=== PATIENT | female | born 1945 | race Caucasian/White ===

== ENCOUNTER 2017-11-03 05:36 | Inpatient (IN) | payer OTHER ==
[2017-11-03] MEDS ORDERED: BACITRACIN 50000 UNITS INJ (06:41)
[2017-11-03] MEDS ORDERED: POLYMYXIN B 500000 UNIT INJ (06:43)
[2017-11-03] MEDS: LANSOPRAZOLE 30 MG CAP PO (06:47)
[2017-11-03] MEDS: ACETAMINOPHEN 1000MG/100ML IV 100 ML IVPB ×2 (06:47→21:20)
[2017-11-03] MEDS: ONDANSETRON 4 MG INJ IV ×3 (06:47→17:54)
[2017-11-03] MEDS: LACTATED RINGER'S 1,000 ML IV (06:48)
[2017-11-03] MEDS ORDERED: CEFAZOLIN 2 GM/50 ML (PMX) 50 ML (FOR WT < 120 KG) IVPB (07:00)
[2017-11-03] MEDS ORDERED: TRANEXAMIC ACID IRR (07:30)
[2017-11-03] MEDS ORDERED: SOD CHLORIDE 0.9% IRR (07:30)
[2017-11-03] MEDS ORDERED: BUPIVACAINE 0.75%/DEXT (SPINAL) 2 ML INJ (07:36)
[2017-11-03] MEDS ORDERED: morphine SULFATE/PF (10 MG/10 ML) INJ (07:36)
[2017-11-03] MEDS ORDERED: ONDANSETRON 4 MG INJ (08:29)
[2017-11-03] MEDS ORDERED: PROPOFOL 20 ML (08:29)
[2017-11-03] MEDS ORDERED: ROCURONIUM 50 MG INJ (08:29)
[2017-11-03] MEDS ORDERED: CEFAZOLIN 1 GM INJ (08:29)
[2017-11-03] MEDS ORDERED: LIDOCAINE 100 MG SYRINGE (08:29)
[2017-11-03] MEDS ORDERED: SUCCINYLCHOLINE CHLORIDE 100 MG/5 ML SYG IV (08:29)
[2017-11-03] MEDS ORDERED: DEXAMETHASONE 4 MG/ML 1 ML INJ (08:29)
[2017-11-03] MEDS ORDERED: FENTAnyl 50 MCG/ML VIAL IV ×2 (08:30)
[2017-11-03] MEDS ORDERED: ONDANSETRON 4 MG INJ IV ×2 (08:30→19:30)
[2017-11-03] MEDS ORDERED: METOCLOPRAMIDE 10 MG INJ IV (08:30)
[2017-11-03] MEDS ORDERED: HYDROmorphONE (0.2 MG/ML) 10ML SYG IV ×3 (08:30)
[2017-11-03] MEDS ORDERED: DIPHENHYDRAMINE 50 MG INJ IV (08:30)
[2017-11-03] MEDS ORDERED: MEPERIDINE 25 MG INJ IV (08:30)
[2017-11-03] MEDS: TRANEXAMIC ACID IVPB ×2 (08:36→09:17)
[2017-11-03] MEDS: SOD CHLORIDE 0.9% IVPB (08:36)
[2017-11-03] MEDS ORDERED: TRANEXAMIC ACID IVPB (09:00)
[2017-11-03] MEDS ORDERED: SOD CHLORIDE 0.9% IVPB (09:00)
[2017-11-03] MEDS: POLYMYXIN/BACITRACIN 1L IRRIG (09:15)
[2017-11-03] MEDS: DEXTROSE 5% IVPB (09:17)
[2017-11-03] MEDS ORDERED: SUGAMMADEX SODIUM 200 MG/2 ML VIAL IV (09:23)
[2017-11-03] MEDS: VANCOMYCIN 1 GM INJ (11:20)
[2017-11-03] MEDS ORDERED: MAGNESIUM HYDROXIDE 30ML CUP PO (12:30)
[2017-11-03] MEDS ORDERED: BISACODYL 10 MG SUPP PR (12:30)
[2017-11-03] MEDS ORDERED: SENNA/DOCUSATE NA (8.6MG/50MG) TAB PO (12:30)
[2017-11-03] MEDS ORDERED: NALOXONE (0.4 MG/ML) INJ IV (12:30)
[2017-11-03] MEDS: DOCUSATE SODIUM 100 MG CAP PO (12:30)
[2017-11-03] MEDS ORDERED: NA PHOSPHATE/BIPHOS 133 ML ENEMA PR (12:30)
[2017-11-03] MEDS: CEFAZOLIN 2 GM/50 ML (PMX) 50 ML IVPB ×3 (13:18→21:35)
[2017-11-03] MEDS: ASPIRIN (EC) 325 MG TAB PO (21:19)
[2017-11-03] MEDS: GABAPENTIN 300 MG CAP PO (21:19)
[2017-11-03] MEDS: SOD CHLORIDE 0.9% 1,000 ML IV (21:21)
[2017-11-04] MEDS: SOD CHLORIDE 0.9% 1,000 ML IV ×2 (00:40→13:10)
[2017-11-04] MEDS: ACETAMINOPHEN 1000MG/100ML IV 100 ML IVPB ×3 (04:22→20:26)
[2017-11-04] MEDS: CEFAZOLIN 2 GM/50 ML (PMX) 50 ML IVPB (04:55)
[2017-11-04 05:37] LABS: ADD MAN DIFF? NO
[2017-11-04 05:38] LABS: BASOPHILS % 0.1 % (0.0-2.0); HEMATOCRIT 28.8 % (37.0-47.0); HEMOGLOBIN 9.1 g/dl (12.0-16.0); LYMPHOCYTES # 1.3 10^3/ul (0.8-2.9); LYMPHOCYTES % 8.5 % (15.0-51.0); MEAN CORPUSCULAR HEMOGLOBIN 28.7 pg (29.0-33.0); MEAN CORPUSCULAR HGB CONC 31.6 g/dl (32.0-37.0); MEAN CORPUSCULAR VOLUME 90.9 fl (82.0-101.0); MEAN PLATELET VOLUME 12.8 fl (7.4-10.4); MONOCYTE # 1.5 10^3/ul (0.3-0.9); MONOCYTES % 9.7 % (0.0-11.0); NEUTROPHIL # 12.2 10^3/ul (1.6-7.5); NEUTROPHILS % 81.2 % (39.0-77.0); PLATELET COUNT 181 10^3/UL (140-415); RED BLOOD COUNT 3.17 10^6/ul (4.20-5.40); RED CELL DISTRIBUTION WIDTH 12.9 % (11.5-14.5)
[2017-11-04] MEDS: BETHANECHOL 25 MG TAB PO (06:04)
[2017-11-04 06:12] LABS: ANION GAP 7 (8-16); CALCIUM 8.3 mg/dl (8.4-10.2); CARBON DIOXIDE 28 mmol/L (21-31); CHLORIDE 107 mmol/L (97-110); CREATININE 0.68 mg/dl (0.44-1.00); GLUCOSE 103 mg/dl (70-220); SODIUM 137 mmol/L (135-144)
[2017-11-04] MEDS: DIPHENHYDRAMINE 50 MG INJ IV (06:17)
[2017-11-04 06:22] LABS: BLOOD UREA NITROGEN 11 mg/dl (7-20)
[2017-11-04] MEDS: ASPIRIN (EC) 325 MG TAB PO ×2 (08:26→20:27)
[2017-11-04] MEDS: FERROUS FUMARATE (SR) TAB PO ×2 (08:26→20:27)
[2017-11-04] MEDS: DOCUSATE SODIUM 100 MG CAP PO ×2 (08:26→21:00)
[2017-11-04] MEDS ORDERED: CELECOXIB 200 MG CAP PO (09:00)
[2017-11-04] MEDS: oxyCODONE 5 MG TAB PO ×3 (09:50→21:29)
[2017-11-04] MEDS: GABAPENTIN 300 MG CAP PO (20:27)
[2017-11-05] MEDS: SOD CHLORIDE 0.9% 1,000 ML IV ×2 (01:40→14:10)
[2017-11-05] MEDS: oxyCODONE 5 MG TAB PO (03:20)
[2017-11-05] MEDS: ACETAMINOPHEN 1000MG/100ML IV 100 ML IVPB (03:53)
[2017-11-05 05:55] LABS: ADD MAN DIFF? NO
[2017-11-05] MEDS: PANTOPRAZOLE (EC) 40 MG TAB PO (06:08)
[2017-11-05 06:09] LABS: ABNORMAL IP MESSAGE 1; BASOPHILS % 0.2 % (0.0-2.0); EOSINOPHILS # 0.1 10^3/ul (0.0-0.5); EOSINOPHILS % 0.4 % (0.0-7.0); HEMATOCRIT 30.7 % (37.0-47.0); HEMOGLOBIN 9.7 g/dl (12.0-16.0); LYMPHOCYTES # 1.1 10^3/ul (0.8-2.9); LYMPHOCYTES % 9.3 % (15.0-51.0); MEAN CORPUSCULAR HEMOGLOBIN 28.8 pg (29.0-33.0); MEAN CORPUSCULAR HGB CONC 31.6 g/dl (32.0-37.0); MEAN CORPUSCULAR VOLUME 91.1 fl (82.0-101.0); MEAN PLATELET VOLUME 13.2 fl (7.4-10.4); NEUTROPHIL # 9.8 10^3/ul (1.6-7.5); NEUTROPHILS % 81.5 % (39.0-77.0); PLATELET COUNT 172 10^3/UL (140-415); RED BLOOD COUNT 3.37 10^6/ul (4.20-5.40); RED CELL DISTRIBUTION WIDTH 13.2 % (11.5-14.5)
[2017-11-05 06:19] LABS: POSITIVE DIFF @See below
[2017-11-05 06:35] LABS: ANION GAP 11 (8-16); BLOOD UREA NITROGEN 9 mg/dl (7-20); CALCIUM 8.1 mg/dl (8.4-10.2); CARBON DIOXIDE 28 mmol/L (21-31); CHLORIDE 107 mmol/L (97-110); CREATININE 0.61 mg/dl (0.44-1.00); GLUCOSE 112 mg/dl (70-220); POTASSIUM 3.6 mmol/L (3.5-5.1); SODIUM 142 mmol/L (135-144)
[2017-11-05] MEDS: ASPIRIN (EC) 325 MG TAB PO ×2 (08:15→21:27)
[2017-11-05] MEDS: KETOROLAC 15 MG INJ IV ×2 (08:15→15:30)
[2017-11-05] MEDS: FERROUS FUMARATE (SR) TAB PO ×2 (08:15→21:27)
[2017-11-05] MEDS: DOCUSATE SODIUM 100 MG CAP PO ×2 (08:15→21:32)
[2017-11-05] MEDS: POTASSIUM CHLORIDE (SR) 20 MEQ TAB PO (12:41)
[2017-11-05] MEDS: GABAPENTIN 300 MG CAP PO (21:27)
[2017-11-06] MEDS: SOD CHLORIDE 0.9% 1,000 ML IV (02:40)
[2017-11-06 05:23] LABS: ADD MAN DIFF? NO
[2017-11-06 05:27] LABS: WHITE BLOOD COUNT 10.7 10^3/ul (4.8-10.8)
[2017-11-06 05:27] LABS: ABNORMAL IP MESSAGE 1; BASOPHILS % 0.3 % (0.0-2.0); EOSINOPHILS # 0.1 10^3/ul (0.0-0.5); HEMATOCRIT 29.2 % (37.0-47.0); HEMOGLOBIN 9.3 g/dl (12.0-16.0); LYMPHOCYTES # 1.2 10^3/ul (0.8-2.9); MEAN CORPUSCULAR HEMOGLOBIN 28.6 pg (29.0-33.0); MEAN CORPUSCULAR HGB CONC 31.8 g/dl (32.0-37.0); MEAN CORPUSCULAR VOLUME 89.8 fl (82.0-101.0); MEAN PLATELET VOLUME 13.2 fl (7.4-10.4); MONOCYTE # 1.2 10^3/ul (0.3-0.9); NEUTROPHIL # 8.2 10^3/ul (1.6-7.5); NEUTROPHILS % 76.3 % (39.0-77.0); PLATELET COUNT 167 10^3/UL (140-415); RED BLOOD COUNT 3.25 10^6/ul (4.20-5.40); RED CELL DISTRIBUTION WIDTH 13.2 % (11.5-14.5)
[2017-11-06 05:31] LABS: POSITIVE DIFF @See below
[2017-11-06 06:01] LABS: ANION GAP 12 (8-16); BLOOD UREA NITROGEN 6 mg/dl (7-20); CALCIUM 8.4 mg/dl (8.4-10.2); CARBON DIOXIDE 29 mmol/L (21-31); CHLORIDE 106 mmol/L (97-110); CREATININE 0.63 mg/dl (0.44-1.00); GLUCOSE 103 mg/dl (70-220); POTASSIUM 4.4 mmol/L (3.5-5.1); SODIUM 143 mmol/L (135-144)
[2017-11-06] MEDS: PANTOPRAZOLE (EC) 40 MG TAB PO (06:38)
[2017-11-06] MEDS: DOCUSATE SODIUM 100 MG CAP PO (09:20)
[2017-11-06] MEDS: FERROUS FUMARATE (SR) TAB PO (09:21)
[2017-11-06] MEDS: ASPIRIN (EC) 325 MG TAB PO (09:21)
[2017-11-06] MEDS: oxyCODONE 5 MG TAB PO (10:14)
== END 2017-11-06 14:30 | disposition home or self-care (01) | DRG 470 ==
LOC: REC 05:36 → MS1 14:02
PROC: 0SRD0J9 Replacement of Left Knee Joint with Synthetic Substitute, Cemented, Open Approach (ICD-10-PCS; principal; 2017-11-03 07:34)
DX: M17.12 Unilateral primary osteoarthritis, left knee (principal); D62 Acute posthemorrhagic anemia; E66.01 Morbid (severe) obesity due to excess calories; Z68.38 Body mass index [BMI] 38.0-38.9, adult; E78.5 Hyperlipidemia, unspecified
CPT/HCPCS: 73560; 80048; 85025; 86850; 86900; 86901; 87081; 87086; 88304; 88311; 97110; 97116; 97162; 97165; 97530

== ENCOUNTER 2018-04-15 09:01 | Inpatient (IN) | payer OTHER ==
[2018-04-15] MEDS: LACTATED RINGER'S 1,000 ML IV* (06:00)
[2018-04-15] MEDS ORDERED: KETOROLAC 15 MG INJ IV (10:30)
[2018-04-15] MEDS ORDERED: BETHANECHOL 25 MG TAB PO (10:30)
[2018-04-15] MEDS ORDERED: NALOXONE (0.4 MG/ML) INJ IV (10:30)
[2018-04-15] MEDS ORDERED: NA PHOSPHATE/BIPHOS 133 ML ENEMA PR (10:30)
[2018-04-15] MEDS ORDERED: DIPHENHYDRAMINE 50 MG INJ IV ×2 (10:30→12:30)
[2018-04-15] MEDS ORDERED: oxyCODONE 5 MG TAB PO (10:30)
[2018-04-15] MEDS ORDERED: MIDAZOLAM 1 MG/ML 2 ML INJ (10:47)
[2018-04-15] MEDS ORDERED: FENTAnyl 50 MCG/ML VIAL (10:47)
[2018-04-15] MEDS ORDERED: ONDANSETRON 4 MG INJ (10:48)
[2018-04-15] MEDS ORDERED: PROPOFOL 20 ML (10:51)
[2018-04-15] MEDS ORDERED: BUPIVACAINE 0.75%/DEXT (SPINAL) 2 ML INJ (10:51)
[2018-04-15] MEDS ORDERED: LIDOCAINE 2% (SDV) 5 ML INJ (10:51)
[2018-04-15] MEDS ORDERED: ROPIVACAINE 0.5 % 30 ML VIAL (10:53)
[2018-04-15] MEDS ORDERED: ACETAMINOPHEN 1000MG/100ML IV 100 ML (12:19)
[2018-04-15] MEDS ORDERED: IPRATROPIUM (NEB) 0.5 MG/2.5 ML AMP HHN (12:30)
[2018-04-15] MEDS ORDERED: FENTAnyl 50 MCG/ML VIAL IV ×2 (12:30)
[2018-04-15] MEDS ORDERED: hydrALAzine 20 MG INJ IV (12:30)
[2018-04-15] MEDS ORDERED: LABETALOL HCL 20MG INJ IV (12:30)
[2018-04-15] MEDS ORDERED: HYDROmorphONE 1 MG/5 ML IV SYRINGE IV ×3 (12:30)
[2018-04-15] MEDS: TRANEXAMIC ACID 1,000 MG in NS 100 ML PRE-OP X1 IVPB (12:30)
[2018-04-15] MEDS ORDERED: ALBUMIN HUMAN 5% 250 ML IV (12:30)
[2018-04-15] MEDS ORDERED: ONDANSETRON 4 MG INJ IV (12:30)
[2018-04-15] MEDS ORDERED: LEVALBUTEROL (NEB) 1.25 MG/0.5 ML AMP HHN (12:30)
[2018-04-15] MEDS ORDERED: MEPERIDINE 25 MG INJ IV (12:30)
[2018-04-15] MEDS: CEFAZOLIN 2 GM/50 ML (PMX) 50 ML IVPB (13:30)
[2018-04-15] MEDS ORDERED: POLYMYXIN B 500000 UNIT INJ (13:37)
[2018-04-15] MEDS: TRANEXAMIC ACID 1,000 MG in NS 100 ML INTRA-OP X1 IVPB (14:00)
[2018-04-15] MEDS: ONDANSETRON 4 MG INJ IV ×3 (15:34→22:57)
[2018-04-15] MEDS: CEFAZOLIN 1 GM/50 ML (PMX) 50 ML IVPB ×2 (15:34→22:57)
[2018-04-15] MEDS: DOCUSATE SODIUM 100 MG CAP PO (15:35)
[2018-04-15] MEDS: ASPIRIN (EC) 325 MG TAB PO (15:35)
[2018-04-15] MEDS: SOD CHLORIDE 0.9% 1,000 ML IV ×2 (20:22→22:34)
[2018-04-15] MEDS: GABAPENTIN 100 MG CAP PO (20:23)
[2018-04-15] MEDS: oxyCODONE 5 MG TAB PO (23:11)
[2018-04-16] MEDS: ONDANSETRON 4 MG INJ IV (04:18)
[2018-04-16 05:03] LABS: ADD MAN DIFF? NO
[2018-04-16 05:06] LABS: WHITE BLOOD COUNT 9.8 10^3/ul (4.8-10.8)
[2018-04-16 05:06] LABS: BASOPHILS % 0.4 % (0.0-2.0); EOSINOPHILS # 0.1 10^3/ul (0.0-0.5); EOSINOPHILS % 0.9 % (0.0-7.0); HEMATOCRIT 29.8 % (37.0-47.0); HEMOGLOBIN 9.2 g/dl (12.0-16.0); LYMPHOCYTES # 1.1 10^3/ul (0.8-2.9); LYMPHOCYTES % 11.3 % (15.0-51.0); MEAN CORPUSCULAR HEMOGLOBIN 27.5 pg (29.0-33.0); MEAN CORPUSCULAR HGB CONC 30.9 g/dl (32.0-37.0); MEAN CORPUSCULAR VOLUME 89.2 fl (82.0-101.0); MEAN PLATELET VOLUME 12.7 fl (7.4-10.4); MONOCYTE # 1.1 10^3/ul (0.3-0.9); MONOCYTES % 11.1 % (0.0-11.0); NEUTROPHIL # 7.4 10^3/ul (1.6-7.5); NEUTROPHILS % 75.8 % (39.0-77.0); PLATELET COUNT 186 10^3/UL (140-415); RED BLOOD COUNT 3.34 10^6/ul (4.20-5.40); RED CELL DISTRIBUTION WIDTH 13.6 % (11.5-14.5)
[2018-04-16 05:32] LABS: ANION GAP 5 (5-13); BLOOD UREA NITROGEN 11 mg/dl (7-20); CALCIUM 7.9 mg/dl (8.4-10.2); CARBON DIOXIDE 27 mmol/L (21-31); CHLORIDE 108 mmol/L (97-110); CREATININE 0.64 mg/dl (0.44-1.00); GLUCOSE 106 mg/dl (70-220); POTASSIUM 4.5 mmol/L (3.5-5.1); SODIUM 140 mmol/L (135-144)
[2018-04-16] MEDS: CEFAZOLIN 1 GM/50 ML (PMX) 50 ML IVPB (06:38)
[2018-04-16] MEDS: FERROUS FUMARATE (SR) TAB PO ×2 (08:29→20:40)
[2018-04-16] MEDS: oxyCODONE 5 MG TAB PO ×2 (08:29→13:11)
[2018-04-16] MEDS: MELOXICAM 15 MG TAB PO (08:30)
[2018-04-16] MEDS: GABAPENTIN 100 MG CAP PO ×2 (08:30→20:40)
[2018-04-16] MEDS: DOCUSATE SODIUM 100 MG CAP PO ×2 (08:30→20:40)
[2018-04-16] MEDS: ASPIRIN (EC) 325 MG TAB PO (08:30)
[2018-04-16] MEDS: SOD CHLORIDE 0.9% 1,000 ML IV ×2 (08:38→23:18)
[2018-04-17] MEDS: oxyCODONE 5 MG TAB PO ×2 (00:14→14:34)
[2018-04-17 05:14] LABS: ADD MAN DIFF? NO
[2018-04-17 05:15] LABS: BASOPHILS % 0.2 % (0.0-2.0); EOSINOPHILS # 0.4 10^3/ul (0.0-0.5); EOSINOPHILS % 3.1 % (0.0-7.0); HEMATOCRIT 30.4 % (37.0-47.0); HEMOGLOBIN 9.4 g/dl (12.0-16.0); LYMPHOCYTES # 1.3 10^3/ul (0.8-2.9); MEAN CORPUSCULAR HEMOGLOBIN 27.7 pg (29.0-33.0); MEAN CORPUSCULAR HGB CONC 30.9 g/dl (32.0-37.0); MEAN CORPUSCULAR VOLUME 89.7 fl (82.0-101.0); MEAN PLATELET VOLUME 12.9 fl (7.4-10.4); MONOCYTE # 1.5 10^3/ul (0.3-0.9); MONOCYTES % 11.6 % (0.0-11.0); NEUTROPHIL # 9.4 10^3/ul (1.6-7.5); NEUTROPHILS % 74.5 % (39.0-77.0); PLATELET COUNT 171 10^3/UL (140-415); RED BLOOD COUNT 3.39 10^6/ul (4.20-5.40); RED CELL DISTRIBUTION WIDTH 13.6 % (11.5-14.5)
[2018-04-17 05:15] LABS: WHITE BLOOD COUNT 12.5 10^3/ul (4.8-10.8)
[2018-04-17] MEDS: PANTOPRAZOLE (EC) 40 MG TAB PO (05:21)
[2018-04-17 05:52] LABS: ANION GAP 6 (5-13); BLOOD UREA NITROGEN 9 mg/dl (7-20); CALCIUM 8.3 mg/dl (8.4-10.2); CARBON DIOXIDE 27 mmol/L (21-31); CHLORIDE 106 mmol/L (97-110); CREATININE 0.73 mg/dl (0.44-1.00); GLUCOSE 116 mg/dl (70-220); POTASSIUM 4.2 mmol/L (3.5-5.1); SODIUM 139 mmol/L (135-144)
[2018-04-17] MEDS: GABAPENTIN 100 MG CAP PO ×2 (09:25→21:12)
[2018-04-17] MEDS: DOCUSATE SODIUM 100 MG CAP PO ×2 (09:25→21:12)
[2018-04-17] MEDS: FERROUS FUMARATE (SR) TAB PO ×2 (09:25→21:12)
[2018-04-17] MEDS: MELOXICAM 15 MG TAB PO (09:25)
[2018-04-17] MEDS: ASPIRIN (EC) 325 MG TAB PO (09:25)
[2018-04-17] MEDS: SOD CHLORIDE 0.9% 1,000 ML IV (12:04)
[2018-04-17] MEDS: BISACODYL 10 MG SUPP PR (16:14)
[2018-04-17] MEDS: MAGNESIUM HYDROXIDE 30ML CUP PO (17:58)
[2018-04-17] MEDS: SENNA/DOCUSATE NA (8.6MG/50MG) TAB PO (21:13)
[2018-04-18] MEDS: SOD CHLORIDE 0.9% 1,000 ML IV (00:34)
[2018-04-18 05:20] LABS: ADD MAN DIFF? NO
[2018-04-18 05:28] LABS: WHITE BLOOD COUNT 14.4 10^3/ul (4.8-10.8)
[2018-04-18 05:28] LABS: ABNORMAL IP MESSAGE 1; BASOPHILS % 0.2 % (0.0-2.0); EOSINOPHILS # 0.4 10^3/ul (0.0-0.5); EOSINOPHILS % 2.8 % (0.0-7.0); HEMATOCRIT 28.8 % (37.0-47.0); HEMOGLOBIN 8.9 g/dl (12.0-16.0); LYMPHOCYTES # 1.6 10^3/ul (0.8-2.9); LYMPHOCYTES % 11.1 % (15.0-51.0); MEAN CORPUSCULAR HEMOGLOBIN 27.6 pg (29.0-33.0); MEAN CORPUSCULAR HGB CONC 30.9 g/dl (32.0-37.0); MEAN CORPUSCULAR VOLUME 89.4 fl (82.0-101.0); MEAN PLATELET VOLUME 13.2 fl (7.4-10.4); MONOCYTE # 1.5 10^3/ul (0.3-0.9); MONOCYTES % 10.7 % (0.0-11.0); NEUTROPHIL # 10.8 10^3/ul (1.6-7.5); NEUTROPHILS % 74.6 % (39.0-77.0); PLATELET COUNT 189 10^3/UL (140-415); RED BLOOD COUNT 3.22 10^6/ul (4.20-5.40); RED CELL DISTRIBUTION WIDTH 13.6 % (11.5-14.5)
[2018-04-18 05:44] LABS: POSITIVE DIFF @See below
[2018-04-18 05:54] LABS: ANION GAP 7 (5-13); BLOOD UREA NITROGEN 8 mg/dl (7-20); CALCIUM 8.7 mg/dl (8.4-10.2); CARBON DIOXIDE 27 mmol/L (21-31); CHLORIDE 104 mmol/L (97-110); GLUCOSE 128 mg/dl (70-220); POTASSIUM 4.2 mmol/L (3.5-5.1); SODIUM 138 mmol/L (135-144)
[2018-04-18] MEDS: PANTOPRAZOLE (EC) 40 MG TAB PO (05:54)
[2018-04-18] MEDS: DOCUSATE SODIUM 100 MG CAP PO (08:34)
[2018-04-18] MEDS: ASPIRIN (EC) 325 MG TAB PO (08:34)
[2018-04-18] MEDS: GABAPENTIN 100 MG CAP PO (08:34)
[2018-04-18] MEDS: MELOXICAM 15 MG TAB PO (08:34)
[2018-04-18] MEDS: FERROUS FUMARATE (SR) TAB PO (08:34)
[2018-04-18] MEDS: oxyCODONE 5 MG TAB PO (09:35)
== END 2018-04-18 12:15 | disposition home health service (06) | DRG 470 ==
LOC: REC 09:01 → MS1 17:32
PROC: 0SRC069 Replacement of Right Knee Joint with Oxidized Zirconium on Polyethylene Synthetic Substitute, Cemented, Open Approach (ICD-10-PCS; principal; 2018-04-15 12:00)
DX: M17.11 Unilateral primary osteoarthritis, right knee (principal); Z85.3 Personal history of malignant neoplasm of breast
CPT/HCPCS: 73560; 80048; 85025; 86850; 86900; 86901; 87081; 87086; 88304; 88311; 97110; 97116; 97161; 97167; 97530